=== PATIENT | female | born 1960 | race Two or more races ===

== ENCOUNTER 2022-07-09 14:52 | Inpatient (IN) | payer OTHER ==
[~2022-07-09] VITALS: Ht 157.5 cm; Wt 99.8 kg
[2022-07-09 15:07] VITALS: BP 126/65
--- NOTE | 2022-07-09 15:30 | NUR ---
Received patient via wheel chair, direct admit from [facility] 62 y/o female. Dx: S/P right knee arthroscopy with partial medial meniscectomy 07/09/22. Dressing on the right knee to leg clean and dry. Routine admission done, oriented to room, given call light button. Placed purewick connected to suction wall. Attended
[2022-07-09] MEDS ORDERED: GABA800T11 PO (16:59)
[2022-07-09] MEDS ORDERED: MIRT-93 PO (16:59)
[2022-07-09] MEDS ORDERED: METF-440 PO (16:59)
--- NOTE | 2022-07-09 17:00 | NUR ---
Patient complaining of pain, Dulce Villegas informed awaiting for admission order.
[2022-07-09 20:00] VITALS: BP 113/56
[2022-07-09] MEDS ORDERED: REMEDY ESSENTIAL ZINC PASTE 113 GM TOP PRN (20:00)
[2022-07-09] MEDS ORDERED: ACETAMINOPHEN 325 MG TABLET PO PRN (20:00)
[2022-07-09] MEDS ORDERED: DEXTROSE 50% 50 ML DISP.SYRIN IV PRN (20:00)
[2022-07-09] MEDS ORDERED: MIRALAX 17 GM POWD.PACK PO PRN (20:00)
[2022-07-09] MEDS: OXYCODONE/APAP 5-325 MG TABLET PO PRN (20:08)
[2022-07-09] MEDS: DOCUSATE SODIUM 100 MG CAPSULE PO SCH (20:47)
[2022-07-09] MEDS: ENOXAPARIN SODIUM 40 MG/0.4 ML DISP.SYRIN SQ SCH (20:53)
[2022-07-09] MEDS: INSULIN REGULAR, HUMAN 300 UNIT/3 ML VIAL SQ PRN (20:54)
[2022-07-09] MEDS: BLOOD SUGAR DIAGNOSTIC 1 EACH STRIP VI SCH (20:55)
[2022-07-09] MEDS ORDERED: MIRTAZAPINE 15 MG TABLET PO SCH (21:00)
--- NOTE | 2022-07-10 03:46 | NUR ---
Admitted a 62 yr old female from [facility] S/P Right knee arthroplasty and partial medial meniscectomy POD #1 AAOx4 All needs attended. VSS Right knee dressing clean dry and intact. Hx of DM, Falls, Chronic pain. WBAT. Purewick to suction, moderate amount urine noted. Medicated for pain as needed. Patient on Percocet. Continent of bowel and bladder. No BM Noted. Will monitor patient.
[2022-07-10 04:00] VITALS: BP 118/66
[2022-07-10] MEDS: OXYCODONE/APAP 5-325 MG TABLET PO PRN ×3 (05:13→19:53)
[2022-07-10] MEDS: BLOOD SUGAR DIAGNOSTIC 1 EACH STRIP VI SCH ×4 (06:31→21:07)
[2022-07-10 06:46] LABS: HEMATOCRIT 36.2 % (31.2-41.9); MEAN CORPUSCULAR HEMOGLOBIN 30.3 uug (24.7-32.8); MEAN CORPUSCULAR VOLUME 91.6 fL (75.5-95.3); PLATELET COUNT (AUTO) 245 K/uL (179-408)
[2022-07-10 07:06] LABS: THYROID STIMULATING HORMONE 0.53 mIU/mL (0.358-3.740)
[2022-07-10 07:26] LABS: CREATININE 0.7 mg/dL (0.6-1.3); MAGNESIUM 2.1 mg/dL (1.8-2.4); PHOSPHOROUS 3.9 mg/dL (2.5-4.9)
[2022-07-10] MEDS: INSULIN REGULAR, HUMAN 300 UNIT/3 ML VIAL SQ PRN ×3 (07:58→21:10)
[2022-07-10 08:00] VITALS: BP 113/63
[2022-07-10] MEDS: METFORMIN HCL 500 MG TABLET PO SCH ×2 (08:23→17:14)
[2022-07-10] MEDS: GABAPENTIN 400 MG CAPSULE PO SCH ×3 (08:23→17:14)
[2022-07-10 08:38] LABS: BILIRUBIN,TOTAL 0.4 mg/dL (0.2-1.0); TOTAL PROTEIN, SERUM 7.4 g/dL (6.4-8.2)
--- NOTE | 2022-07-10 10:43 | NUR ---
0730-PATIENT IN BED, AWAKE, A/X4, DENIES PAIN. NO RESPIRATORY DISTRESS/SOB. PATIENT ABLE TO MAKE HER NEEDS KNOWN PROMPTLY AND TIMELY. SAFETY PRECAUTIONS REMINDERS PROVIDED. RT KNEE WITH CLEAN DD IN PLACE, NO S/S OF BLEEDING NOTED. ENCOURAGED PATIENT TO USE CALL LIGHT FOR HELP EVERY TIME NEEDED WITH GOOD UNDERSTANDING. 0900-SCHEDULED MEDICATION ADMINISTERED WITH NO ASE NOTED. PATIENT CONTINUES EATING HER BREAKFAST, DENIES GI DISCOMFORT. ASSIST NEEDED.
[2022-07-10] MEDS: PROTEIN SUPPLEMENT (PROSTAT) 30 ML LIQUID PO SCH ×2 (12:19→17:14)
[2022-07-10] MEDS: LACTULOSE 20 G/30 ML LIQUID UDC PO PRN (13:37)
[2022-07-10 16:00] VITALS: BP 125/60
--- NOTE | 2022-07-10 19:15 | NUR ---
PATIENT WAS MOVED FROM ROOM 301 TO 325, ROOM CHANGED INFORMED TO PATIENT PRIOR AND PATIENT AGREED WITH ROOM CHANGED. ALL BELONGINGS MOVED TO NEW ROOM. PATIENT IN STABLE CONDITIONS DURING SHIFT. MEDICATED PRN FOR PAIN BASED ON PAIN LEVEL NEEDS AND ORDERED BY MD. & MEDICATION EFFECTIVE. MEDICATED PATIENT FOR CONSTIPATION WITH NO BM RESULTS BY THE END OF THE SHIFT. ENDORSED TO INCOMING REGISTERED RESPIRATORY THERAPIST RN FOR PROPER FOLLOW UP.
[2022-07-10] MEDS ORDERED: MIRTAZAPINE 15 MG TAB.RAPDIS ONE (20:44)
[2022-07-10 20:50] VITALS: BP 128/65
[2022-07-10] MEDS: DOCUSATE SODIUM 100 MG CAPSULE PO SCH (20:58)
[2022-07-10] MEDS: MIRTAZAPINE 15 MG TAB.RAPDIS SL SCH (20:58)
[2022-07-10] MEDS: ENOXAPARIN SODIUM 40 MG/0.4 ML DISP.SYRIN SQ SCH (21:05)
[2022-07-11 04:44] VITALS: BP 104/46
--- NOTE | 2022-07-11 05:00 | NUR ---
AAOx4 All needs attended. Right knee dressing intact. Patient S/P right total knee arthroplasty. Pain meds given as needed. Relief noted. Kept comfortable. VSS No acute distress noted. Purewick to suctioned, yellow urine noted.
[2022-07-11] MEDS: BLOOD SUGAR DIAGNOSTIC 1 EACH STRIP VI SCH ×4 (06:32→20:06)
[2022-07-11] MEDS: GABAPENTIN 400 MG CAPSULE PO SCH ×3 (08:51→17:31)
[2022-07-11] MEDS: METFORMIN HCL 500 MG TABLET PO SCH ×2 (08:51→17:31)
[2022-07-11] MEDS: PROTEIN SUPPLEMENT (PROSTAT) 30 ML LIQUID PO SCH ×3 (08:52→17:31)
[2022-07-11] MEDS: GLUCERNA SHAKE 237 ML CAN PO SCH (08:52)
[2022-07-11] MEDS: OXYCODONE/APAP 5-325 MG TABLET PO PRN ×2 (08:56→20:02)
[2022-07-11] MEDS: ASPIRIN 81 MG TAB.CHEW PO SCH ×2 (10:55→11:25)
--- NOTE | 2022-07-11 10:56 | NUR ---
VOMITING: Pt c/o nausea and then vomiting clear stomach acid and spit. Pt states she did not vomit her breakfast. Notified Ginette Jesus NP who ordered Zofran. Will give Zofran now if pt can tolerate it and continue to monitor.
[2022-07-11] MEDS ORDERED: ONDANSETRON 4 MG/2 ML VIAL IV PRN (11:00)
[2022-07-11] MEDS ORDERED: ONDANSETRON HCL 4 MG TABLET PO PRN (11:15)
[2022-07-11] MEDS: ONDANSETRON ODT 4 MG TAB.RAPDIS SL PRN (11:29)
[2022-07-11] MEDS: INSULIN REGULAR, HUMAN 300 UNIT/3 ML VIAL SQ PRN (12:05)
[2022-07-11] MEDS: MIRTAZAPINE 15 MG TAB.RAPDIS SL SCH (20:07)
[2022-07-11] MEDS: ENOXAPARIN SODIUM 40 MG/0.4 ML DISP.SYRIN SQ SCH (20:09)
[2022-07-11] MEDS: ATORVASTATIN 40 MG TABLET PO SCH (20:13)
[2022-07-11] MEDS: DOCUSATE SODIUM 100 MG CAPSULE PO SCH (20:15)
--- NOTE | 2022-07-12 03:57 | NUR ---
Awake alert and oriented x4 All needs attended. All due meds given without difficulty. Purewick to gravity drainage with yellow urine noted. Medicated with Percocet as needed. Relief noted. Right knee dressing clean dry and intact. Will monitor patient. Kept comfortable. Siderails up for safety.
[2022-07-12] MEDS: BLOOD SUGAR DIAGNOSTIC 1 EACH STRIP VI SCH ×4 (06:33→21:44)
[2022-07-12 08:11] VITALS: BP 94/50
[2022-07-12] MEDS: METFORMIN HCL 500 MG TABLET PO SCH ×2 (08:33→18:39)
[2022-07-12] MEDS: ASPIRIN 81 MG TAB.CHEW PO SCH (08:33)
[2022-07-12] MEDS: GLUCERNA SHAKE 237 ML CAN PO SCH (08:33)
[2022-07-12] MEDS: GABAPENTIN 400 MG CAPSULE PO SCH ×3 (08:33→16:54)
[2022-07-12] MEDS: PROTEIN SUPPLEMENT (PROSTAT) 30 ML LIQUID PO SCH ×3 (08:34→17:13)
[2022-07-12] MEDS: OXYCODONE/APAP 5-325 MG TABLET PO PRN ×3 (08:58→21:44)
[2022-07-12 10:30] VITALS: BP 104/57
[2022-07-12 10:35] VITALS: BP 94/48
--- NOTE | 2022-07-12 12:52 | NUR ---
INDIVIDUALIZED PLAN OF CARE
[2022-07-12] MEDS: ASPIRIN/ACETAMINOPHEN/CAFFEINE TABLET PO PRN (15:01)
[2022-07-12 15:58] VITALS: BP 127/70
[2022-07-12] MEDS: LACTULOSE 20 G/30 ML LIQUID UDC PO PRN (16:56)
--- NOTE | 2022-07-12 17:57 | NUR ---
Patient A/Ox4, Upper Sorbian and Yoruba speaking. Patient able to make her needs known and follow directions, cooperative with care/hygiene, cooperative with staff and compliant with her medication & treatment. Medications administered through out the shift as scheduled and ordered by MD with no ASE noted. Patient with good appetite, eating and drinking well, denies GI discomfort, no swallowing problems observed. No s/s of hypo/hyperglycemia noted FS for BS checks done AC meals with no insulin coverage needed during shift. Patient continues under rehab for PT/OT skilled services as ordered, OOB with therapists for her therapy, patient actively able to participate in therapy and sergey. it fairly. Patient continent of both, assisted to the restroom as needed; uses pure-week at times to drain urine. Patient was seen by Dr. Cardona, rehab MD. Patient c/o headache during shift. Orders by Dr Cardona for Excedrin PRN for migrane, (as patient stated she does gets migraine headache and uses Excedrin to treat it) administered and effective. Patient's BP was on the low side during shift. Ginette Jesus MD was informed, per Ginette to place an IV line and to0 do orthostatic BP, done and recorded on [facility]. Orthostatic BP readings relayed to Ginette Jesus with no new orders given. Routine rounds and frequent visual checks done. All needs attended well and met through out the shift. Ruby, Nurse cyanide case hardener visited patient and updated on patient's condition and blood pressure readings. Per Ruby, patient's blood pressure readings are normal for her, "her BP usually runs low" Will continue to monitor patient and follow up according plan of care. Endorsed to relieving nurse for proper follow up.
[2022-07-12] MEDS: ONDANSETRON ODT 4 MG TAB.RAPDIS SL PRN (18:40)
--- NOTE | 2022-07-12 19:30 | NUR ---
Change of shift report received from JONATHAN Kelly.
[2022-07-12] MEDS: ATORVASTATIN 40 MG TABLET PO SCH (20:38)
[2022-07-12] MEDS: DOCUSATE SODIUM 100 MG CAPSULE PO SCH (20:38)
[2022-07-12] MEDS: MIRTAZAPINE 15 MG TAB.RAPDIS SL SCH (20:38)
[2022-07-12 20:45] VITALS: BP 123/59
[2022-07-12] MEDS: ENOXAPARIN SODIUM 40 MG/0.4 ML DISP.SYRIN SQ SCH (20:46)
--- NOTE | 2022-07-12 21:45 | NUR ---
Patient was up to bed side chair for short period of time. Assist back to bed WBAT, dressing to surgical site dry and intact no sign of bleeding noted. c/o pain to right knee 8/10 medicated as per order.
[2022-07-13 04:00] VITALS: BP 132/69
[2022-07-13] MEDS: BLOOD SUGAR DIAGNOSTIC 1 EACH STRIP VI SCH ×4 (06:38→21:00)
[2022-07-13 08:00] VITALS: BP 96/55
[2022-07-13] MEDS: PROTEIN SUPPLEMENT (PROSTAT) 30 ML LIQUID PO SCH ×3 (09:23→17:15)
[2022-07-13] MEDS: GLUCERNA SHAKE 237 ML CAN PO SCH (09:24)
[2022-07-13] MEDS: ASPIRIN 81 MG TAB.CHEW PO SCH (09:26)
[2022-07-13] MEDS: METFORMIN HCL 500 MG TABLET PO SCH ×2 (09:26→18:01)
[2022-07-13] MEDS: GABAPENTIN 400 MG CAPSULE PO SCH ×3 (09:27→17:19)
[2022-07-13] MEDS: OXYCODONE/APAP 5-325 MG TABLET PO PRN ×2 (10:22→23:47)
[2022-07-13 16:00] VITALS: BP 132/57
[2022-07-13] MEDS: INSULIN REGULAR, HUMAN 300 UNIT/3 ML VIAL SQ PRN (16:47)
[2022-07-13 20:40] VITALS: BP 127/70
[2022-07-13] MEDS: DOCUSATE SODIUM 100 MG CAPSULE PO SCH (22:34)
[2022-07-13] MEDS: ATORVASTATIN 40 MG TABLET PO SCH (22:34)
[2022-07-13] MEDS: ENOXAPARIN SODIUM 40 MG/0.4 ML DISP.SYRIN SQ SCH (22:37)
[2022-07-13] MEDS: MIRTAZAPINE 15 MG TAB.RAPDIS SL SCH (22:38)
[2022-07-14 04:00] VITALS: BP 98/49
--- NOTE | 2022-07-14 07:18 | NUR ---
Pt received in bed AOX4. Pt requested some laxative during the night and took stool softener no further prn medication requested. Pt was assisted to the BR. Comfortable back in bed requested Percocet 1 tab. Pt slept well through the night without any incident. No family available to update with plan of care. Endorse care to incoming day nurse.
[2022-07-14 08:00] VITALS: BP 118/48
[2022-07-14] MEDS: BLOOD SUGAR DIAGNOSTIC 1 EACH STRIP VI SCH ×4 (08:34→20:47)
[2022-07-14] MEDS: ASPIRIN 81 MG TAB.CHEW PO SCH (08:35)
[2022-07-14] MEDS: GABAPENTIN 400 MG CAPSULE PO SCH ×3 (08:35→16:20)
[2022-07-14] MEDS: METFORMIN HCL 500 MG TABLET PO SCH ×2 (08:35→17:30)
[2022-07-14] MEDS: PROTEIN SUPPLEMENT (PROSTAT) 30 ML LIQUID PO SCH ×3 (08:37→16:20)
[2022-07-14] MEDS: GLUCERNA SHAKE 237 ML CAN PO SCH (08:38)
[2022-07-14] MEDS: OXYCODONE/APAP 5-325 MG TABLET PO PRN ×3 (13:59→21:32)
--- NOTE | 2022-07-14 15:12 | NUR ---
INTERDISCIPLINARY TEAM CONFERENCE THIS WAS OBSERVED AND DONE ON 07/10/22 13:00
[2022-07-14] MEDS: ONDANSETRON ODT 4 MG TAB.RAPDIS SL PRN (16:19)
[2022-07-14 16:22] VITALS: BP 140/65
[2022-07-14] MEDS: LACTULOSE 20 G/30 ML LIQUID UDC PO PRN (16:31)
[2022-07-14] MEDS: INSULIN REGULAR, HUMAN 300 UNIT/3 ML VIAL SQ PRN ×2 (16:32→21:19)
[2022-07-14 20:00] VITALS: BP 132/69
[2022-07-14] MEDS: ENOXAPARIN SODIUM 40 MG/0.4 ML DISP.SYRIN SQ SCH (20:25)
[2022-07-14] MEDS: DOCUSATE SODIUM 100 MG CAPSULE PO SCH (20:26)
[2022-07-14] MEDS: MIRTAZAPINE 15 MG TAB.RAPDIS SL SCH (20:26)
[2022-07-14] MEDS: ATORVASTATIN 40 MG TABLET PO SCH (20:26)
[2022-07-15 04:00] VITALS: BP 111/52
[2022-07-15 04:25] VITALS: BP 132/69
[2022-07-15] MEDS: BLOOD SUGAR DIAGNOSTIC 1 EACH STRIP VI SCH ×4 (07:48→20:27)
--- NOTE | 2022-07-15 07:54 | NUR ---
Pt received in bed AOX4. Pt requested pain medication at 2100, no further prn medication requested. Pt was assisted to the BR with walker. Comfortable back in bed. Pt slept well through the night without any incident. No family available to update with plan of care. Endorse care to incoming day nurse.
[2022-07-15 08:00] VITALS: BP 112/64
[2022-07-15] MEDS: GABAPENTIN 400 MG CAPSULE PO SCH ×3 (08:27→16:17)
[2022-07-15] MEDS: ASPIRIN 81 MG TAB.CHEW PO SCH (08:28)
[2022-07-15] MEDS: OXYCODONE/APAP 5-325 MG TABLET PO PRN ×3 (08:28→20:33)
[2022-07-15] MEDS: METFORMIN HCL 500 MG TABLET PO SCH ×2 (08:29→17:18)
[2022-07-15] MEDS: PROTEIN SUPPLEMENT (PROSTAT) 30 ML LIQUID PO SCH ×3 (08:36→17:19)
[2022-07-15] MEDS: GLUCERNA SHAKE 237 ML CAN PO SCH (08:37)
[2022-07-15] MEDS ORDERED: BISACODYL 10 MG SUPP.RECT RC PRN (13:15)
[2022-07-15 16:00] VITALS: BP 117/59
[2022-07-15] MEDS: LACTULOSE 20 G/30 ML LIQUID UDC PO PRN (16:17)
[2022-07-15] MEDS: INSULIN REGULAR, HUMAN 300 UNIT/3 ML VIAL SQ PRN ×2 (17:16→20:30)
--- NOTE | 2022-07-15 19:25 | NUR ---
RECEIVED REPORT FROM [facility]. PATIENT IS ALERT AND ORIENTED X4. VITAL SIGNS STABLE. PATIENT TOLERATES PO MEDICATIONS AND DIET WELL. PATIENT HAD COMPLAINT OF PAIN. RN GAVE PAIN MEDIATIONS ORDERED. PATIENT EXPRESSED RELIEF. PATIENT PARTICIPATES WITH PHYSICAL AND OCCUPATIONAL THERAPY PER SCHEDULE. PATIENT VOIDS ADEQUATELY. PATIENT HAD DIFFICULTY WITH PASSING BOWELS. RN GAVE MEDICATION FOR CONSTIPATION PER MD ORDER. PATIENT HAD 1 BOWEL MOVEMENT. NO SIGN AND SYMPTOMS OF HYPOGLYCEMIA. PATIENT HAD SHOWER. DRESSING REMOVED. PATIENT WANTED TO KEEP KNEE SUTURES OPEN TO AIR. NO ACUTE DISTRESS. ALL NEEDS MET AT THIS TIME. CALL LIGHT WITHIN REACH. FALL PRECAUTIONS IN PLACE. RN ENDORSED CONTINUATION OF CARE TO [facility] RN.
[2022-07-15 20:00] VITALS: BP 138/74
[2022-07-15] MEDS: DOCUSATE SODIUM 100 MG CAPSULE PO SCH (20:14)
[2022-07-15] MEDS: ATORVASTATIN 40 MG TABLET PO SCH (20:15)
[2022-07-15] MEDS: ENOXAPARIN SODIUM 40 MG/0.4 ML DISP.SYRIN SQ SCH (20:16)
[2022-07-15] MEDS: MIRTAZAPINE 15 MG TAB.RAPDIS SL SCH ×2 (21:00→22:31)
[2022-07-16 04:00] VITALS: BP 112/53
[2022-07-16] MEDS: BLOOD SUGAR DIAGNOSTIC 1 EACH STRIP VI SCH ×4 (06:16→20:58)
--- NOTE | 2022-07-16 06:17 | NUR ---
FBS 75 mg/dl. [place] juice provided at this time. Denies s/s of hypoglycemia. Will recheck after 30 minutes.
--- NOTE | 2022-07-16 06:51 | NUR ---
BS rechecked, went up tp 115mg/dl. Will endorsed accordingly.
[2022-07-16] MEDS: GABAPENTIN 400 MG CAPSULE PO SCH ×3 (08:18→16:49)
[2022-07-16] MEDS: METFORMIN HCL 500 MG TABLET PO SCH ×2 (08:18→17:56)
[2022-07-16] MEDS: ASPIRIN 81 MG TAB.CHEW PO SCH (08:18)
[2022-07-16] MEDS: PROTEIN SUPPLEMENT (PROSTAT) 30 ML LIQUID PO SCH ×3 (08:19→17:49)
[2022-07-16] MEDS: GLUCERNA SHAKE 237 ML CAN PO SCH (09:17)
[2022-07-16] MEDS: PANTOPRAZOLE SODIUM 40 MG TABLET.DR PO SCH (11:29)
[2022-07-16] MEDS: OXYCODONE/APAP 5-325 MG TABLET PO PRN (16:30)
[2022-07-16] MEDS: INSULIN REGULAR, HUMAN 300 UNIT/3 ML VIAL SQ PRN ×2 (16:50→21:03)
--- NOTE | 2022-07-16 18:36 | NUR ---
0730-REC'D PATIENT IN BED, ASLEEP, NO S/S OF RESPIRATORY DISTRESS. NO FACIAL GRIMACES OR MOANING NOTED. SKIN W/D TO THE TOUCH, AFEBRILE. PATIENT WAKES UP ON VERBAL COMMANDS, DENIES PAIN. NO S/S OF HYPO/HTN OR HYPO/HYPERGLYCEMIA NOTED; RT KNEE SURGICAL SITE WITH CLEAN DD IN PLACE, NO S/S OF BLEEDING. NO SKIN IMPAIRMENT/CIRCULATION. SAFETY MEASURES IN PLACE, CALL LIGHT AT REACH. 0900-SCHEDULED MEDICATIONS ADMINISTERED WITH NO ASE NOTED. ORAL FLUIDS TAKEN WELL. 1000-OOB WITH THERAPIST AMBULATING IN HALLWAY, USING WALKER, ACTIVELY PARTICIPATING IN THERAPY. 12:30-NURSE YIELD LOSS INSPECTOR VISITING PATIENT, UPDATED ON PATIENT'S CONDITION.
[2022-07-16 20:00] VITALS: BP 135/74
[2022-07-16] MEDS: ENOXAPARIN SODIUM 40 MG/0.4 ML DISP.SYRIN SQ SCH (20:45)
[2022-07-16] MEDS: ATORVASTATIN 40 MG TABLET PO SCH (20:46)
[2022-07-16] MEDS: DOCUSATE SODIUM 100 MG CAPSULE PO SCH (20:46)
[2022-07-16] MEDS: MIRTAZAPINE 15 MG TAB.RAPDIS SL SCH (20:46)
[2022-07-17 04:00] VITALS: BP 111/55
[2022-07-17] MEDS: PANTOPRAZOLE SODIUM 40 MG TABLET.DR PO SCH (06:13)
[2022-07-17] MEDS: BLOOD SUGAR DIAGNOSTIC 1 EACH STRIP VI SCH ×4 (06:34→21:05)
[2022-07-17] MEDS: PROTEIN SUPPLEMENT (PROSTAT) 30 ML LIQUID PO SCH ×3 (08:16→17:26)
[2022-07-17] MEDS: GLUCERNA SHAKE 237 ML CAN PO SCH (08:16)
[2022-07-17] MEDS: GABAPENTIN 400 MG CAPSULE PO SCH ×3 (08:16→17:26)
[2022-07-17] MEDS: METFORMIN HCL 500 MG TABLET PO SCH ×2 (08:16→17:46)
[2022-07-17] MEDS: ASPIRIN 81 MG TAB.CHEW PO SCH (08:16)
[2022-07-17] MEDS: INSULIN REGULAR, HUMAN 300 UNIT/3 ML VIAL SQ PRN ×2 (11:53→16:54)
--- NOTE | 2022-07-17 13:54 | NUR ---
INTERDISCIPLINARY TEAM CONFERENCE
[2022-07-17] MEDS: OXYCODONE/APAP 5-325 MG TABLET PO PRN (15:37)
--- NOTE | 2022-07-17 16:48 | NUR ---
0730-Recd in bed, A/A/Ox, Verbally communicative, no respiratory distress, denies pain. No s/s of hypo/hyperglycemia or hypo/HTN noted, Safety measures in place and call light at reach. 0900-Scheduled medications administered w/ no ASE noted; oral fluids taken well.
--- NOTE | 2022-07-17 19:07 | NUR ---
PATIENT IN STABLE CONDITIONS, PAIN MANAGED ORDERED. FS FOR BS CHECKS AC/HS WITH SS COVERAGE ORDERED. NO LEAH NOTED THROUGH OUT THE SHIFT. PATIENT IN HER BASELINE CONDITIONS, A/OX4, VERBALIZES NEEDS AND FOLLOWS DIRECTIONS. VSS, ASSISTED WITH HER ADLS THROUGH OUT THE SHIFT. OOB WITH REHAB FOR PT/OT SKILLED SERVICES AND ACTIVELY ABLE TO PARTICIPATE IN THERAPY AND MAKING GOOD PROGRESS. ALL NEEDS ANTICIPATED AND MET. ENDORSED PROPERLY TO RELIEVING NOC SHIFT RN.
[2022-07-17 20:38] VITALS: BP 113/55
[2022-07-17] MEDS: MIRTAZAPINE 15 MG TAB.RAPDIS SL SCH (20:56)
[2022-07-17] MEDS: ATORVASTATIN 40 MG TABLET PO SCH (20:56)
[2022-07-17] MEDS: DOCUSATE SODIUM 100 MG CAPSULE PO SCH (20:56)
[2022-07-17] MEDS: ENOXAPARIN SODIUM 40 MG/0.4 ML DISP.SYRIN SQ SCH (20:58)
[2022-07-18 05:33] VITALS: BP 106/59
[2022-07-18] MEDS: PANTOPRAZOLE SODIUM 40 MG TABLET.DR PO SCH (05:58)
[2022-07-18] MEDS: BLOOD SUGAR DIAGNOSTIC 1 EACH STRIP VI SCH ×4 (06:02→20:55)
[2022-07-18] MEDS: METFORMIN HCL 500 MG TABLET PO SCH ×2 (08:54→17:13)
[2022-07-18] MEDS: ASPIRIN 81 MG TAB.CHEW PO SCH (08:54)
[2022-07-18] MEDS: PROTEIN SUPPLEMENT (PROSTAT) 30 ML LIQUID PO SCH ×3 (08:54→17:13)
[2022-07-18] MEDS: GLUCERNA SHAKE 237 ML CAN PO SCH (08:55)
[2022-07-18] MEDS: GABAPENTIN 400 MG CAPSULE PO SCH ×3 (08:55→17:13)
[2022-07-18] MEDS: ASPIRIN/ACETAMINOPHEN/CAFFEINE TABLET PO PRN (09:53)
[2022-07-18 15:43] VITALS: BP 113/49
[2022-07-18 20:00] VITALS: BP 104/46
[2022-07-18] MEDS: MIRTAZAPINE 15 MG TAB.RAPDIS SL SCH (20:48)
[2022-07-18] MEDS: ATORVASTATIN 40 MG TABLET PO SCH (20:48)
[2022-07-18] MEDS: DOCUSATE SODIUM 100 MG CAPSULE PO SCH (20:48)
[2022-07-18] MEDS: ENOXAPARIN SODIUM 40 MG/0.4 ML DISP.SYRIN SQ SCH (20:49)
[2022-07-18] MEDS: LACTULOSE 20 G/30 ML LIQUID UDC PO PRN (20:56)
[2022-07-19 04:00] VITALS: BP 97/47
[2022-07-19] MEDS: PANTOPRAZOLE SODIUM 40 MG TABLET.DR PO SCH (06:04)
[2022-07-19] MEDS: BLOOD SUGAR DIAGNOSTIC 1 EACH STRIP VI SCH ×4 (06:04→21:04)
[2022-07-19 07:55] VITALS: BP 103/46
[2022-07-19] MEDS: ASPIRIN 81 MG TAB.CHEW PO SCH (08:19)
[2022-07-19] MEDS: GABAPENTIN 400 MG CAPSULE PO SCH ×3 (08:19→17:28)
[2022-07-19] MEDS: METFORMIN HCL 500 MG TABLET PO SCH ×2 (08:19→17:28)
[2022-07-19] MEDS: GLUCERNA SHAKE 237 ML CAN PO SCH (08:20)
[2022-07-19] MEDS: PROTEIN SUPPLEMENT (PROSTAT) 30 ML LIQUID PO SCH ×3 (08:20→17:29)
[2022-07-19] MEDS: OXYCODONE/APAP 5-325 MG TABLET PO PRN ×3 (08:56→21:04)
--- NOTE | 2022-07-19 15:09 | NUR ---
0730-Rec'd patient in bed, awake/A/Ox4, verbalizes needs; denies pain. No s/s of hypo/hyperglycemia noted. Encouraged to use call light for help every time needed with good understanding. 0900-Scheduled medications administered with no ASE noted; oral fluids taken well, patient with good appetite continues eating her breakfast. No swallowing problems observed. 1230-Patient eating lunch, denies any discomfort, has a visitor at bedside. Help offered and assist as needed. 1320-Out to her apt with Dr. Verduzco, post op RT knee revision. Patient left in good stable conditions.
[2022-07-19 16:32] VITALS: BP 129/66
[2022-07-19] MEDS: INSULIN REGULAR, HUMAN 300 UNIT/3 ML VIAL SQ PRN (16:59)
--- NOTE | 2022-07-19 17:44 | NUR ---
1550-Patient came back from [facility] in stable baseline/usual conditions. Patient was ambulating with platform FWW, accompanied by a sibling/daughter. Directed patient to her room, patient denies pain. Asked patient for any Dr. (ortho's) instructions. Patient stated no new instructions given, "MD stated everything was healing properly and well" pertaining RT knee surgery. Assisted patient through out the shift, needs anticipated and met promptly and timely.
[2022-07-19 20:12] VITALS: BP 107/54
[2022-07-19] MEDS: MIRTAZAPINE 15 MG TAB.RAPDIS SL SCH (20:22)
[2022-07-19] MEDS: DOCUSATE SODIUM 100 MG CAPSULE PO SCH (20:22)
[2022-07-19] MEDS: ATORVASTATIN 40 MG TABLET PO SCH (20:22)
[2022-07-19] MEDS: ENOXAPARIN SODIUM 40 MG/0.4 ML DISP.SYRIN SQ SCH (20:25)
[2022-07-20 04:00] VITALS: BP 96/47
[2022-07-20] MEDS: PANTOPRAZOLE SODIUM 40 MG TABLET.DR PO SCH (06:05)
[2022-07-20] MEDS: BLOOD SUGAR DIAGNOSTIC 1 EACH STRIP VI SCH ×4 (06:35→20:50)
[2022-07-20 07:39] VITALS: BP 101/42
[2022-07-20] MEDS: GLUCERNA SHAKE 237 ML CAN PO SCH (09:48)
[2022-07-20] MEDS: PROTEIN SUPPLEMENT (PROSTAT) 30 ML LIQUID PO SCH ×3 (09:48→16:41)
[2022-07-20] MEDS: GABAPENTIN 400 MG CAPSULE PO SCH ×3 (10:01→16:40)
[2022-07-20] MEDS: METFORMIN HCL 500 MG TABLET PO SCH ×2 (10:01→18:07)
[2022-07-20] MEDS: ASPIRIN 81 MG TAB.CHEW PO SCH (10:02)
[2022-07-20] MEDS: OXYCODONE/APAP 5-325 MG TABLET PO PRN ×3 (12:13→21:26)
[2022-07-20 16:00] VITALS: BP 103/50
[2022-07-20 20:33] VITALS: BP 105/46
[2022-07-20] MEDS: DOCUSATE SODIUM 100 MG CAPSULE PO SCH (20:48)
[2022-07-20] MEDS: ENOXAPARIN SODIUM 40 MG/0.4 ML DISP.SYRIN SQ SCH (20:48)
[2022-07-20] MEDS: ATORVASTATIN 40 MG TABLET PO SCH (20:48)
[2022-07-20] MEDS: MIRTAZAPINE 15 MG TAB.RAPDIS SL SCH (20:50)
[2022-07-21 04:20] VITALS: BP 104/60
--- NOTE | 2022-07-21 05:42 | NUR ---
patient is alert, oriented x4, no sob, respirations are even nonlabored, skin warm and dry to touch, patient requested pain percocet 2 tablets of percocet but then changed her mind, to 1 tab of percocet, tried to return the two tablet of percocet in omnicell, omnicell only allowed to return one tablet, on duty warehouse loader made aware and 1 tablet of percocet was given to warehouse loader to place it at secure place until pharmacy open in the morning to return to pharmacy.
[2022-07-21] MEDS: PANTOPRAZOLE SODIUM 40 MG TABLET.DR PO SCH (06:03)
[2022-07-21] MEDS: BLOOD SUGAR DIAGNOSTIC 1 EACH STRIP VI SCH ×4 (06:38→20:52)
[2022-07-21] MEDS: ASPIRIN 81 MG TAB.CHEW PO SCH (08:13)
[2022-07-21] MEDS: METFORMIN HCL 500 MG TABLET PO SCH ×2 (08:14→17:39)
[2022-07-21] MEDS: GABAPENTIN 400 MG CAPSULE PO SCH ×3 (08:14→17:39)
[2022-07-21] MEDS: GLUCERNA SHAKE 237 ML CAN PO SCH (08:14)
[2022-07-21] MEDS: PROTEIN SUPPLEMENT (PROSTAT) 30 ML LIQUID PO SCH ×3 (08:15→17:40)
[2022-07-21 08:29] VITALS: BP 119/92
--- NOTE | 2022-07-21 10:17 | NUR ---
7:30, Pt received lying in bed, awake in no acute distress. She states pain is overall under control 4-5/10l. Pt is able to ambulate with help and with a walker, is continent. Pt instructed to call if any help needed and to use call light
--- NOTE | 2022-07-21 10:20 | NUR ---
9:00, Pt was resting on chair, all meds given, Pt has no new requests
[2022-07-21] MEDS: OXYCODONE/APAP 5-325 MG TABLET PO PRN (13:52)
[2022-07-21 15:50] VITALS: BP 118/62
[2022-07-21] MEDS: ONDANSETRON ODT 4 MG TAB.RAPDIS SL PRN (18:30)
--- NOTE | 2022-07-21 18:52 | NUR ---
18:45, Pt comfortable in bed denies pain. Was medicated at 18:30 with Zofran for nausea (with no vomiting). Pt able to ambulate and use bathroom, and swallow without any difficult. All needs met during shift.
--- NOTE | 2022-07-21 20:52 | NUR ---
fingerstick done patient blood sugar 131 ISS given see emar.
[2022-07-21] MEDS: INSULIN REGULAR, HUMAN 300 UNIT/3 ML VIAL SQ PRN (20:56)
[2022-07-21] MEDS: MIRTAZAPINE 15 MG TAB.RAPDIS SL SCH (21:05)
[2022-07-21] MEDS: ATORVASTATIN 40 MG TABLET PO SCH (21:06)
[2022-07-21] MEDS: ENOXAPARIN SODIUM 40 MG/0.4 ML DISP.SYRIN SQ SCH (21:07)
[2022-07-21] MEDS: DOCUSATE SODIUM 100 MG CAPSULE PO SCH (21:10)
--- NOTE | 2022-07-21 21:10 | NUR ---
due medication patient tolerated medication with water able to take medication as a whole .
[2022-07-22 04:00] VITALS: BP 107/56
[2022-07-22] MEDS: PANTOPRAZOLE SODIUM 40 MG TABLET.DR PO SCH (06:32)
[2022-07-22] MEDS: BLOOD SUGAR DIAGNOSTIC 1 EACH STRIP VI SCH ×4 (06:33→21:04)
--- NOTE | 2022-07-22 06:56 | NUR ---
slept most of the shift needs attended to uneventful night fingerstick done and patient blood sugar 117 will endorsed to day shift RN to give ISS .
[2022-07-22 08:09] VITALS: BP 91/42
[2022-07-22] MEDS: ASPIRIN 81 MG TAB.CHEW PO SCH (08:30)
[2022-07-22] MEDS: PROTEIN SUPPLEMENT (PROSTAT) 30 ML LIQUID PO SCH ×3 (08:30→17:06)
[2022-07-22] MEDS: METFORMIN HCL 500 MG TABLET PO SCH ×2 (08:30→17:06)
[2022-07-22] MEDS: GABAPENTIN 400 MG CAPSULE PO SCH ×3 (08:30→17:05)
[2022-07-22] MEDS: GLUCERNA SHAKE 237 ML CAN PO SCH (08:31)
[2022-07-22] MEDS: ASPIRIN/ACETAMINOPHEN/CAFFEINE TABLET PO PRN (09:10)
--- NOTE | 2022-07-22 09:50 | NUR ---
0730-Rec'd patient in bed asleep, able to wake up on verbal commands. On R/A, no resp. distress/SOB noted, A/Ox4; Able to verbalize her needs and follow directions, denies pain at this time. No SS of hypo/hyperglycemia. Encouraged to use the call light for help when needed with good understanding. Safety measures in place. 0900-Scheduled medications administered, no ASE. Patient completed eating her breakfast, denies GI discomfort; oral fluids taken well. Call light within reach, reminded and encouraged to use it for help every time needed with good verbal understanding.
[2022-07-22 15:11] VITALS: BP 112/65
[2022-07-22] MEDS: OXYCODONE/APAP 5-325 MG TABLET PO PRN (17:06)
--- NOTE | 2022-07-22 18:28 | NUR ---
Patient remains in stable baseline conditions; continues under rehab for PT/OT skilled services, actively able to participate in therapy, making good progress, improved from admission. Requires of minimal assist with ADLs, medicated PRN for pain based on pain level needs as ordered by MD and effective. Patient eating and drinking well, no SS of hypo/hyperglycemia noted. FS for BS checks AC done during shift with no insulin needed. Assisted with ADLs and at all times. Patient with plan to be discharge home [id number] with p/u time 1-3pm via private. Per clinical case manager only reason to hold DC would be if platform FWW is not deliver.
[2022-07-22 20:00] VITALS: BP 111/43
[2022-07-22] MEDS: ATORVASTATIN 40 MG TABLET PO SCH (20:57)
[2022-07-22] MEDS: DOCUSATE SODIUM 100 MG CAPSULE PO SCH (20:58)
[2022-07-22] MEDS: MIRTAZAPINE 15 MG TAB.RAPDIS SL SCH (20:58)
[2022-07-22] MEDS: ENOXAPARIN SODIUM 40 MG/0.4 ML DISP.SYRIN SQ SCH (20:59)
[2022-07-22] MEDS: LACTULOSE 20 G/30 ML LIQUID UDC PO PRN (21:07)
[2022-07-22 21:30] VITALS: BP 111/43
[2022-07-23 04:00] VITALS: BP 111/57
[2022-07-23] MEDS: PANTOPRAZOLE SODIUM 40 MG TABLET.DR PO SCH (05:49)
[2022-07-23] MEDS: BLOOD SUGAR DIAGNOSTIC 1 EACH STRIP VI SCH ×2 (05:57→11:30)
[2022-07-23 07:49] VITALS: BP 97/42
[2022-07-23] MEDS: GABAPENTIN 400 MG CAPSULE PO SCH ×2 (08:11→13:12)
[2022-07-23] MEDS: ASPIRIN 81 MG TAB.CHEW PO SCH (08:11)
[2022-07-23] MEDS: PROTEIN SUPPLEMENT (PROSTAT) 30 ML LIQUID PO SCH ×2 (08:12→12:17)
[2022-07-23] MEDS: GLUCERNA SHAKE 237 ML CAN PO SCH (08:12)
[2022-07-23] MEDS: METFORMIN HCL 500 MG TABLET PO SCH (08:12)
--- NOTE | 2022-07-23 15:24 | NUR ---
patient discharged home. patient is alert, oriented x4, no sob, respirations are even nonlabored, skin warm and dry to touch, no skin issues noted, right knee incision site is clean and dry. verbal and written instructions provided to patient. written prescription given to patient. belongings are accounted and signed.
== END 2022-07-23 14:45 | disposition home health service (06) | DRG 949 ==
PROVIDERS: ADMIT Physical Medicine & Rehabilitation Pain Medicine; ATTEND Physical Medicine & Rehabilitation Pain Medicine
PROC: 05HY33Z Insertion of Infusion Device into Upper Vein, Percutaneous Approach (ICD-10-PCS; principal; 2022-07-12)
DX: S83.241D Other tear of medial meniscus, current injury, right knee, subsequent encounter (principal); D68.59 Other primary thrombophilia; G90.511 Complex regional pain syndrome I of right upper limb; S06.6XAD Traumatic subarachnoid hemorrhage with loss of consciousness status unknown, subsequent encounter; S06.5XAD Traumatic subdural hemorrhage with loss of consciousness status unknown, subsequent encounter; E11.9 Type 2 diabetes mellitus without complications; E66.01 Morbid (severe) obesity due to excess calories; E78.5 Hyperlipidemia, unspecified; Z51.89 Encounter for other specified aftercare; Z90.49 Acquired absence of other specified parts of digestive tract; M22.42 Chondromalacia patellae, left knee; M22.41 Chondromalacia patellae, right knee; W18.30XD Fall on same level, unspecified, subsequent encounter; R26.2 Difficulty in walking, not elsewhere classified; I10 Essential (primary) hypertension; I25.10 Atherosclerotic heart disease of native coronary artery without angina pectoris; I25.2 Old myocardial infarction; J45.909 Unspecified asthma, uncomplicated
CPT/HCPCS: 36415; 83550; 83735; 84100; 84443; 85025; 97535-GO-CO; A4663; A9150; J1650; J1815; Q0162